=== PATIENT | male | born 1955 | race Caucasian/White ===

== ENCOUNTER 2018-02-19 16:41 | Outpatient (CLI) | payer BC ==
[2018-02-19 17:36] LABS: #Basophils 0.1 thou/uL (0.0-0.2); #Eosinphils 0.2 thou/uL (0.0-0.7); #Lymphocytes 1.3 thou/uL (1.20-3.40); #Monocytes 0.7 thou/uL (0.11-0.59); #Neutrophils 5.5 thou/uL (1.40-6.50); %Basophils 0.7 % (0.0-1.0); %Eosinophils 2.2 % (0.0-10.0); %Lymphocytes 17.3 % (21.0-51.0); %Neutrophils 70.8 % (42.0-75.0); Hemoglobin 14.9 g/dL (14.0-18.0); Mean Corpuscular HGB CONC 33.9 g/dL (32.0-36.0); Mean Corpuscular Hemoglobin 30.9 pg (27.0-31.0); Mean Corpuscular Volume 91.1 fL (78.0-98.0); Mean Platelet Volume 7.5 fL (7.4-10.4); Platelet Count 203 thou/uL (130-400); RBC Distribution Width 12.3 % (11.5-14.5); Red Blood Cell (RBC) Count 4.81 mill/uL (4.70-6.10); White Blood Cell (WBC) Count 7.7 thou/uL (4.8-10.8)
[2018-02-19 18:01] LABS: ALT (SGPT) 13 U/L (8-55); AST (SGOT) 19 U/L (5-34); Albumin 4.7 g/dL (3.5-5.0); Alkaline Phosphatase 62 U/L (40-150); Anion Gap 14 mmol/L (10-20); BUN (Urea Nitrogen) 19 mg/dL (8.4-25.7); Bilirubin, Total 0.9 mg/dL (0.2-1.2); Calc. Creatinine Clearance 0 mL/min (70-130); Calcium 9.3 mg/dL (7.8-10.44); Carbon Dioxide 25 mmol/L (22-29); Chloride 106 mmol/L (98-107); Estimated GFR-MDRD 70; Glucose 84 mg/dL (70-105); Potassium 3.9 mmol/L (3.5-5.1); Protein, Total 7.7 g/dL (6.0-8.3); Sodium 141 mmol/L (136-145)
--- NOTE | 2018-02-21 08:38 | EKG ---
Test Reason : Blood Pressure : / mmHG Vent. Rate : 063 BPM Atrial Rate : 063 BPM P-R Int : 150 ms QRS Dur : 090 ms QT Int : 398 ms P-R-T Axes : 046 041 034 degrees QTc Int : 407 ms Normal sinus rhythm Normal ECG When compared with ECG of 18-JAN-2014 14:01, Sinus rhythm has replaced Atrial fibrillation Vent. rate has decreased BY 75 BPM T wave amplitude has increased in Lateral leads Confirmed by BEAR ROMAN ([id number]) on 02/21/2018 8:38:35 AM Referred By: RAVEN Confirmed By:BEAR ROMAN
== END 2018-02-19 16:42 | disposition home or self-care (01) ==
LOC: LABBT 16:41
PROVIDERS: ATTEND Surgery
DX: Z01.818 Encounter for other preprocedural examination (principal); K40.90 Unilateral inguinal hernia, without obstruction or gangrene, not specified as recurrent
CPT/HCPCS: 80053; 85025; 93005; 93010

== ENCOUNTER 2018-03-05 06:22 | Day surgery (SDC) | payer BC ==
[2018-02-19 17:15] VITALS: BMI 27.8
[2018-03-05] MEDS ORDERED: CEFAZOLIN 2 GM/50 ML BAG ONE (06:57)
[2018-03-05] MEDS ORDERED: Bupivacaine/Epinephrine 0.25% 30 ML VIAL ONE (07:14)
[2018-03-05] MEDS ORDERED: Midazolam HCl 2 mg/2 ml Vial ONE (07:21)
[2018-03-05] MEDS ORDERED: Fentanyl 100 MCG/2 ML VIAL ONE (07:21)
[2018-03-05] MEDS ORDERED: HYDROmorphone 2 MG/ML VIAL ONE (07:22)
--- NOTE | 2018-03-05 08:47 | OP ---
PREOPERATIVE DIAGNOSIS: Right inguinal hernia. SURGEON: Emre Lang M.D. PROCEDURE PERFORMED: Right inguinal hernia repair with mesh. INDICATIONS: A 62-year-old male with a painful groin bulge on the right side, found to have a hernia . FINDINGS: A direct right inguinal hernia. DESCRIPTION OF PROCEDURE: After informed consent was obtained, the patient was taken to the operatin g room and given general mask anesthesia, placed in the supine position. His groin area was prepped and draped in the usual fashion. Local anesthesia infiltrated subcutaneously and deep. A transverse right inguinal incision was performed. The subcu divided sharply. The fascia of the external obliq ue was incised in direction of its fibers through the external ring. Spermatic cord isolated with a Yesica drain. He had a large direct inguinal hernia circumscribed and reduced. Reduction maintaine d with a PHS hernia system. Posterior layer placed in the preperitoneal space. Anterior was laid ou t, sutured to the pubic tubercle with a 2-0 Prolene suture, tucked under the external oblique fascia laterally. A notch was cut out for the spermatic cord. The cord placed anatomic. The fascia closed with a running 3-0 Vicryl. Carmelo's closed with interrupted 3-0 Vicryl and the skin closed with a r unning subcuticular 4-0 Rapide. Steri-Strips applied. Sterile bandage applied. The patient tolerat ed the procedure well and was transferred to recovery in good condition. Sponge and needle count abel ified correct x2.
[2018-03-05] MEDS ORDERED: Morphine 2 MG/ML SYRINGE ONE ×2 (09:01→09:15)
[2018-03-05] MEDS ORDERED: Ondansetron PF 4 MG/2 ML Vial ONE (12:42)
[2018-03-05] MEDS ORDERED: Dexamethasone 20 MG/5 ML VIAL ONE (12:42)
[2018-03-05] MEDS ORDERED: Ketorolac Tromethamine 30 MG/ML VIAL ONE (12:42)
[2018-03-05] MEDS ORDERED: Lidocaine 1% PF 5 ML VIAL ONE (12:42)
[2018-03-05] MEDS ORDERED: PROPOFOL 200 MG/20 ML VIAL ONE (12:42)
[2018-03-05] MEDS ORDERED: Glycopyrrolate 0.2 MG/ML 5 ML SYRINGE ONE (12:42)
== END 2018-03-05 10:19 | disposition home or self-care (01) ==
LOC: SDC 06:22
PROVIDERS: ATTEND Surgery
PROC: 0YU50JZ Supplement Right Inguinal Region with Synthetic Substitute, Open Approach (ICD-10-PCS; principal; 2018-03-05)
DX: K40.90 Unilateral inguinal hernia, without obstruction or gangrene, not specified as recurrent (principal); Z79.82 Long term (current) use of aspirin; Z79.899 Other long term (current) drug therapy; Z98.890 Other specified postprocedural states
CPT/HCPCS: 96374; C1781; J0131; J1100; J1170; J1885; J2001; J2250; J2270; J2405; J2704; J3010

== ENCOUNTER 2021-04-24 11:02 | Inpatient (IN) | payer BC ==
[2021-04-24] MEDS ORDERED: Magnesium 2 GM/50 ML BAG (IN WATER) ONE (11:24)
[2021-04-24] MEDS ORDERED: Diltiazem 125 MG/25 ML ONE (11:36)
[2021-04-24 12:08] LABS: #Eosinphils 0.1 thou/uL (0.0-0.7); #Lymphocytes 1.3 thou/uL (1.20-3.40); #Monocytes 0.6 thou/uL (0.11-0.59); #Neutrophils 6.1 thou/uL (1.40-6.50); %Basophils 0.6 % (0.0-1.0); %Eosinophils 1.2 % (0.0-10.0); %Lymphocytes 15.7 % (21.0-51.0); %Neutrophils 75.7 % (42.0-75.0); Hemoglobin 15.5 g/dL (14.0-18.0); Mean Corpuscular HGB CONC 33.6 g/dL (32.0-36.0); Mean Corpuscular Hemoglobin 31.1 pg (27.0-31.0); Mean Corpuscular Volume 92.5 fL (78.0-98.0); Platelet Count 203 thou/uL (130-400); RBC Distribution Width 11.9 % (11.5-14.5); Red Blood Cell (RBC) Count 4.98 mill/uL (4.70-6.10); White Blood Cell (WBC) Count 8.1 thou/uL (4.8-10.8)
[2021-04-24 12:26] LABS: ALT (SGPT) 17 U/L (8-55); AST (SGOT) 19 U/L (5-34); Albumin 3.8 g/dL (3.4-4.8); Alkaline Phosphatase 62 U/L (40-110); Anion Gap 12 mmol/L (10-20); BUN (Urea Nitrogen) 16 mg/dL (8.4-25.7); Bilirubin, Total 0.6 mg/dL (0.2-1.2); Calc. Creatinine Clearance 0 mL/min (70-130); Calcium 8.5 mg/dL (7.8-10.44); Carbon Dioxide 24 mmol/L (23-31); Chloride 106 mmol/L (98-107); Globulin 3.1 g/dL (2.4-3.5); Glucose 108 mg/dL (80-115); Lipase 36 U/L (8-78); Magnesium 2.7 mg/dL (1.6-2.6); Potassium 3.8 mmol/L (3.5-5.1); Protein, Total 6.9 g/dL (5.8-8.1); Sodium 138 mmol/L (136-145)
[2021-04-24 12:30] LABS: Bacteria/HPF None Seen HPF (None Seen); Bilirubin Negative (Negative); Blood, Urine 2+ (Negative); Clarity Clear (Clear); Glucose, Urine (Dipstick) Normal (Negative); Ketone, Urine Negative (Negative); Leukocyte Negative Leu/uL (Negative); Nitrite Negative (Negative); Protein, Urine (Dipstick) 10 mg/dL (Neg-Trace); Specific Gravity, Urine 1.016 (1.002-1.036); Squamous Epithelial None Seen HPF (0-3); Urobilinogen Normal mg/dL (Less than 2); WBC/HPF 0-3 HPF (0-3); pH, Urine 5.5 (5.0-9.0)
[2021-04-24 12:36] LABS: Prothrombin Time 13.4 sec (12.0-14.7)
[2021-04-24 12:37] LABS: PTT 29.2 sec (22.9-36.1)
[2021-04-24] MEDS ORDERED: Digoxin 0.5 MG/2 ML AMP ONE (13:02)
[2021-04-24] MEDS ORDERED: Acetaminophen 325 MG TAB PO PRN (13:45)
[2021-04-24] MEDS ORDERED: Communication Order-Pharmacy FS ONE (13:56)
[2021-04-24] MEDS ORDERED: Diltiazem 125 MG in Sodium Chloride 0.9% 100 ML IVPB SCH (14:00)
[2021-04-24] MEDS ORDERED: Enoxaparin Sodium 100 MG/ML SYRINGE ONE (14:02)
[2021-04-24] MEDS ORDERED: Diltiazem HCl SR 90 mg Capsule PO SCH (14:30)
[2021-04-24] MEDS ORDERED: Electrolyte Replacement Protocol 1 EACH FS SCH (14:45)
[2021-04-24] MEDS ORDERED: Magnesium 2 GM/50 ML 2 GM in Premix Bag 1 BAG IVPB SCH (15:00)
[2021-04-24] MEDS ORDERED: Enoxaparin Sodium 100 MG/ML SYRINGE SC SCH (15:00)
[2021-04-24] MEDS ORDERED: Electrolyte Replacement Protocol FS PRN (15:15)
[2021-04-24 16:06] LABS: SARS-CoV-2 NAA Rapid Test Not Detected (NotDetected)
[2021-04-24] MEDS ORDERED: Potassium Chloride 20 MEQ TAB PO SCH ×2 (16:15→17:00)
[2021-04-24] MEDS ORDERED: Digoxin 0.5 MG/2 ML AMP SLOW IVP SCH ×2 (17:00)
[2021-04-24] MEDS ORDERED: Metoprolol Tartrate 5 MG/5 ML VIAL IVP PRN (17:08)
[2021-04-24] MEDS ORDERED: Amiodarone 450 MG in Dextrose 5% in Water 250 ML IVPB SCH (17:30)
[2021-04-24] MEDS ORDERED: Amiodarone 150 MG, Admixture Fee 1 EACH in Dextrose 5% in Water 100 ML IVPB SCH (17:30)
[2021-04-24 17:33] VITALS: BMI 29.2
[2021-04-24 18:26] LABS: Troponin I Less than 0.010 ng/mL (< 0.028)
[2021-04-24] MEDS: Senokot S 8.6-50 MG TAB PO SCH (19:55)
[2021-04-24] MEDS: Diltiazem 125 MG in Sodium Chloride 0.9% 100 ML IVPB SCH (20:04)
[2021-04-24] MEDS: Folic Acid 1 MG TAB PO SCH (21:25)
[2021-04-24] MEDS: Multivit, Therapeutic 1 TAB PO SCH (21:25)
[2021-04-24] MEDS: Thiamine 100 MG TAB PO SCH (21:25)
[2021-04-24] MEDS: Calcium Carbonate 500 MG ChewTAB PO PRN (22:56)
[2021-04-24] MEDS ORDERED: Sodium Chloride 0.9% 1,000 ML IV SCH (23:00)
[2021-04-24] MEDS ORDERED: Calcium Carbonate 500 MG ChewTAB PO PRN (23:08)
[2021-04-25] MEDS ORDERED: Enoxaparin Sodium 100 MG/ML SYRINGE SC SCH ×3 (03:00→21:00)
[2021-04-25 04:24] LABS: #Eosinphils 0.1 thou/uL (0.0-0.7); #Lymphocytes 1.4 thou/uL (1.20-3.40); #Monocytes 0.5 thou/uL (0.11-0.59); %Basophils 0.5 % (0.0-1.0); %Eosinophils 1.3 % (0.0-10.0); %Lymphocytes 15.3 % (21.0-51.0); %Monocytes 5.6 % (0.0-10.0); %Neutrophils 77.3 % (42.0-75.0); Hemoglobin 14.7 g/dL (14.0-18.0); Mean Corpuscular HGB CONC 34.7 g/dL (32.0-36.0); Mean Corpuscular Hemoglobin 32.1 pg (27.0-31.0); Mean Corpuscular Volume 92.5 fL (78.0-98.0); Mean Platelet Volume 7.2 fL (7.4-10.4); Platelet Count 206 thou/uL (130-400); RBC Distribution Width 11.9 % (11.5-14.5); Red Blood Cell (RBC) Count 4.59 mill/uL (4.70-6.10); White Blood Cell (WBC) Count 9.1 thou/uL (4.8-10.8)
[2021-04-25 04:45] LABS: Anion Gap 11 mmol/L (10-20); BUN (Urea Nitrogen) 14 mg/dL (8.4-25.7); Calc. Creatinine Clearance 97 mL/min (70-130); Calcium 8.4 mg/dL (7.8-10.44); Carbon Dioxide 25 mmol/L (23-31); Chloride 107 mmol/L (98-107); Glucose 104 mg/dL (80-115); Magnesium 2.1 mg/dL (1.6-2.6); Potassium 4.1 mmol/L (3.5-5.1); Sodium 139 mmol/L (136-145)
[2021-04-25] MEDS: Senokot S 8.6-50 MG TAB PO SCH ×2 (08:37→20:27)
[2021-04-25] MEDS: Diltiazem 125 MG in Sodium Chloride 0.9% 100 ML IVPB SCH (08:58)
[2021-04-25] MEDS ORDERED: Ketamine 50 MG/ML (10ML VIAL) ONE (11:43)
[2021-04-25] MEDS: Multivit, Therapeutic 1 TAB PO SCH (20:27)
[2021-04-25] MEDS: Apixaban 5 MG TAB PO SCH (20:27)
[2021-04-25] MEDS: Folic Acid 1 MG TAB PO SCH (20:27)
[2021-04-25] MEDS: Flecainide 50 MG TAB PO SCH (20:27)
[2021-04-25] MEDS: Thiamine 100 MG TAB PO SCH (20:27)
[2021-04-25] MEDS: Calcium Carbonate 500 MG ChewTAB PO PRN (20:27)
[2021-04-26 08:52] VITALS: TEMP 97.8
[2021-04-26] MEDS: Apixaban 5 MG TAB PO SCH (09:34)
[2021-04-26] MEDS: Flecainide 50 MG TAB PO SCH (09:34)
[2021-04-26] MEDS: Senokot S 8.6-50 MG TAB PO SCH (09:34)
[2021-04-26 11:58] VITALS: BP 120/82
== END 2021-04-26 12:07 | disposition home or self-care (01) | DRG 310 ==
LOC: ERS 11:02 → CCU 13:52 → 2NO 04-25 14:50
PROVIDERS: ADMIT Internal Medicine; ATTEND Internal Medicine
PROC: 5A2204Z Restoration of Cardiac Rhythm, Single (ICD-10-PCS; principal; 2021-04-25)
PROC: B24BZZ4 Ultrasonography of Heart with Aorta, Transesophageal (ICD-10-PCS; 2021-04-25)
DX: I48.0 Paroxysmal atrial fibrillation (principal); Z20.822 Contact with and (suspected) exposure to COVID-19; K21.9 Gastro-esophageal reflux disease without esophagitis; I10 Essential (primary) hypertension; I48.4 Atypical atrial flutter; I08.1 Rheumatic disorders of both mitral and tricuspid valves; I42.9 Cardiomyopathy, unspecified; Z95.5 Presence of coronary angioplasty implant and graft; Z88.5 Allergy status to narcotic agent; Z79.82 Long term (current) use of aspirin; Z79.899 Other long term (current) drug therapy
CPT/HCPCS: 36415; 71045; 80048; 80053; 81003; 81015; 83690; 83735; 83880; 84443; 84484; 85025; 85610; 85730; 93005; 93010; 93312; 96365; 96366; 96375; 96376; J1160; J1650; J3475; J3490; J7050; U0002

== ENCOUNTER 2021-06-15 10:21 | Outpatient (CLI) | payer BC ==
[2021-06-15 11:12] LABS: Hemoglobin 13.9 g/dL (13.5-17.5); Mean Corpuscular HGB CONC 33.9 g/dL (32.0-36.0); Mean Corpuscular Hemoglobin 30.7 pg (27.0-33.0); Mean Corpuscular Volume 90.5 fl (81.2-95.1); Mean Platelet Volume 9.4 fl (7.4-10.4); Platelet Count 177 10x3/uL (150-450); RBC Distribution Width 12.8 % (11.5-14.5); Red Blood Cell (RBC) Count 4.53 10x6/uL (4.32-5.72); White Blood Cell (WBC) Count 6.3 10x3/uL (3.5-10.5)
[2021-06-15 11:30] LABS: PTT 27.8 sec (22.0-33.0); Prothrombin Time 11.3 sec (9.5-12.1)
[2021-06-15 11:33] LABS: Anion Gap 13 mmol/L (10-20); BUN (Urea Nitrogen) 16 mg/dL (8.4-25.7); Calc. Creatinine Clearance 0 mL/min (70-130); Calcium 8.7 mg/dL (7.8-10.44); Carbon Dioxide 24 mmol/L (23-31); Chloride 107 mmol/L (98-107); Glucose 91 mg/dL (80-115); Potassium 4.2 mmol/L (3.5-5.1); Sodium 140 mmol/L (136-145)
[2021-06-15 18:46] LABS: SARS-CoV-2 PCR by NAA Not Detected (NotDetected)
== END 2021-06-15 10:22 | disposition home or self-care (01) ==
LOC: LABBT 10:21
PROVIDERS: ATTEND Internal Medicine Cardiovascular Disease
DX: Z01.818 Encounter for other preprocedural examination (principal); I48.92 Unspecified atrial flutter; Z20.822 Contact with and (suspected) exposure to COVID-19
CPT/HCPCS: 80048; 85027; 85610; 85730; 93005; 93010; U0003; U0005

== ENCOUNTER 2021-06-20 05:39 | Day surgery (SDC) | payer BC ==
[2021-06-14 14:03] VITALS: BMI 29.4
[2021-06-20] MEDS ORDERED: Fentanyl 250 MCG/5 ML VIAL ONE (06:30)
[2021-06-20] MEDS ORDERED: Heparin 10,000 UNITS/ 10 ML VIAL ONE (06:49)
[2021-06-20] MEDS ORDERED: Isoproterenol 0.2 MG/1 ML AMP ONE ×2 (06:49→07:38)
[2021-06-20] MEDS ORDERED: Heparin 25,000 units/D5W 500 ML ONE (06:49)
[2021-06-20] MEDS ORDERED: Phenylephrine 10 MG/ML VIAL ONE (07:12)
[2021-06-20] MEDS ORDERED: SUGAMMADEX SODIUM 200 MG/2 ML VIAL ONE (07:13)
[2021-06-20] MEDS ORDERED: Dexamethasone 20 MG/5 ML VIAL ONE (08:22)
[2021-06-20] MEDS ORDERED: Glycopyrrolate 0.2 MG/ML 5 ML SYRINGE ONE (08:22)
[2021-06-20] MEDS ORDERED: PROPOFOL 200 MG/20 ML VIAL ONE (08:22)
[2021-06-20] MEDS ORDERED: Rocuronium Bromide 10 MG/ML (10ML VIAL) ONE (08:22)
[2021-06-20] MEDS ORDERED: Ondansetron PF 4 MG/2 ML Vial ONE (08:22)
[2021-06-20] MEDS ORDERED: Lidocaine 1% PF 5 ML VIAL ONE (08:22)
[2021-06-20] MEDS ORDERED: Protamine Sulfate 50 MG/5 ML VIAL ONE (09:54)
== END 2021-06-20 13:53 | disposition home or self-care (01) ==
LOC: SDC 05:39
PROVIDERS: ATTEND Internal Medicine Cardiovascular Disease
PROC: 02583ZZ Destruction of Conduction Mechanism, Percutaneous Approach (ICD-10-PCS; principal; 2021-06-20)
PROC: 02K83ZZ Map Conduction Mechanism, Percutaneous Approach (ICD-10-PCS; principal; 2021-06-20)
PROC: B244ZZZ Ultrasonography of Right Heart (ICD-10-PCS; principal; 2021-06-20)
DX: I48.4 Atypical atrial flutter (principal); I48.19 Other persistent atrial fibrillation; I08.1 Rheumatic disorders of both mitral and tricuspid valves; I42.9 Cardiomyopathy, unspecified; I13.10 Hypertensive heart and chronic kidney disease without heart failure, with stage 1 through stage 4 chronic kidney disease, or unspecified chronic kidney disease; N18.9 Chronic kidney disease, unspecified; K21.9 Gastro-esophageal reflux disease without esophagitis; Z79.01 Long term (current) use of anticoagulants; Z79.899 Other long term (current) drug therapy; Z88.5 Allergy status to narcotic agent; Z88.6 Allergy status to analgesic agent; Z98.890 Other specified postprocedural states
CPT/HCPCS: 85347; 93005; 93613; 93623; 93656; 93662; C1732; C1759; C1884; J1100; J1644; J2370; J2405; J2704; J2720; J3010

== ENCOUNTER 2021-08-29 13:16 | Outpatient (CLI) | payer BC | END 2021-08-29 13:17 | disposition home or self-care (01) | LOC: TBSIIMAG 13:16 | PROVIDERS: ATTEND Specialist | DX: M51.16 Intervertebral disc disorders with radiculopathy, lumbar region (principal); M50.10 Cervical disc disorder with radiculopathy, unspecified cervical region; M47.26 Other spondylosis with radiculopathy, lumbar region; M48.062 Spinal stenosis, lumbar region with neurogenic claudication; M48.07 Spinal stenosis, lumbosacral region; M48.02 Spinal stenosis, cervical region; G95.20 Unspecified cord compression | CPT/HCPCS: 72141; 72148 ==

== ENCOUNTER 2022-03-13 19:30 | Outpatient (CLI) | payer BC | END 2022-03-13 19:31 | disposition home or self-care (01) | LOC: SLEEPLAB 19:30 | PROVIDERS: ATTEND Specialist | DX: G47.9 Sleep disorder, unspecified (principal); R06.83 Snoring; G47.10 Hypersomnia, unspecified; I10 Essential (primary) hypertension; I48.91 Unspecified atrial fibrillation; G47.00 Insomnia, unspecified | CPT/HCPCS: 95811 ==

== ENCOUNTER 2022-07-09 15:00 | Outpatient (CLI) | payer MEDICARE, BC | END 2022-07-09 15:01 | disposition home or self-care (01) | LOC: TBSIIMAG 15:00 | PROVIDERS: ATTEND Surgery | DX: M47.26 Other spondylosis with radiculopathy, lumbar region (principal); R29.890 Loss of height; M46.06 Spinal enthesopathy, lumbar region; M41.86 Other forms of scoliosis, lumbar region; M41.87 Other forms of scoliosis, lumbosacral region; M51.34 Other intervertebral disc degeneration, thoracic region; M48.04 Spinal stenosis, thoracic region; M51.36 Other intervertebral disc degeneration, lumbar region; M48.061 Spinal stenosis, lumbar region without neurogenic claudication; M47.817 Spondylosis without myelopathy or radiculopathy, lumbosacral region; M25.78 Osteophyte, vertebrae | CPT/HCPCS: 72110; 72148 ==

== ENCOUNTER 2022-08-19 16:01 | Outpatient (CLI) | payer MEDICARE, BC ==
[2022-08-19 17:23] LABS: Hemoglobin 13.5 g/dL (13.5-17.5); Mean Corpuscular HGB CONC 33.2 g/dL (32.0-36.0); Mean Corpuscular Hemoglobin 30.6 pg (27.0-33.0); Mean Corpuscular Volume 92.3 fl (81.2-95.1); Mean Platelet Volume 9.9 fl (7.4-10.4); Platelet Count 188 10x3/uL (150-450); RBC Distribution Width 12.3 % (11.5-14.5); Red Blood Cell (RBC) Count 4.41 10x6/uL (4.32-5.72); White Blood Cell (WBC) Count 6.3 10x3/uL (3.5-10.5)
[2022-08-19 17:34] LABS: INR-International Normal Ratio 0.9; PTT 26.6 sec (22.0-33.0); Prothrombin Time 10.2 sec (9.5-12.1)
[2022-08-19 17:40] LABS: Anion Gap 14 mmol/L (10-20); BUN (Urea Nitrogen) 23 mg/dL (8.4-25.7); Calc. Creatinine Clearance 0 mL/min (70-130); Calcium 8.6 mg/dL (7.8-10.44); Carbon Dioxide 26 mmol/L (23-31); Chloride 105 mmol/L (98-107); Estimated GFR 52; Glucose 89 mg/dL (80-115); Potassium 4.5 mmol/L (3.5-5.1); Sodium 140 mmol/L (136-145)
== END 2022-08-19 16:02 | disposition home or self-care (01) ==
LOC: LABBT 16:01
PROVIDERS: ATTEND Surgery
DX: Z01.812 Encounter for preprocedural laboratory examination (principal); M54.16 Radiculopathy, lumbar region; M48.062 Spinal stenosis, lumbar region with neurogenic claudication
CPT/HCPCS: 80048; 85027; 85610; 85730

== ENCOUNTER 2022-08-22 08:47 | Observation (INO) | payer MEDICARE, BC ==
[2022-08-21 11:25] VITALS: BMI 30.1
[2022-08-22] MEDS ORDERED: Sodium Chloride 0.9% 100 ML ONE (09:53)
[2022-08-22] MEDS ORDERED: CEFAZOLIN 2 GM VIAL ONE (09:53)
[2022-08-22] MEDS ORDERED: Vancomycin 1 GM VIAL ONE (10:07)
[2022-08-22] MEDS ORDERED: Thrombin 5000 UNITS/5 ML VIAL ONE (10:07)
[2022-08-22] MEDS ORDERED: Fentanyl 250 MCG/5 ML VIAL ONE (10:27)
[2022-08-22] MEDS ORDERED: Magnesium 5 GM/10 ML VIAL ONE (12:30)
[2022-08-22] MEDS ORDERED: Dexmedetomidine 200 MCG/2 ML VIAL ONE (12:30)
[2022-08-22] MEDS ORDERED: KETAMINE 100 MG/ML (5ML VIAL) ONE (12:30)
[2022-08-22] MEDS ORDERED: Dexamethasone 20 MG/5 ML VIAL ONE (13:00)
[2022-08-22] MEDS ORDERED: PROPOFOL 200 MG/20 ML VIAL ONE (13:00)
[2022-08-22] MEDS ORDERED: Lidocaine 1% PF 5 ML VIAL ONE (13:00)
[2022-08-22] MEDS ORDERED: Rocuronium Bromide 10 MG/ML (10ML VIAL) ONE (13:00)
[2022-08-22] MEDS ORDERED: NEOSTIGMINE 3 MG/3 ML SYR 3 MG/3 ML SYRINGE ONE (13:00)
[2022-08-22] MEDS ORDERED: ePHEDrine Sulfate 50 MG/10 ML VIAL ONE (13:00)
[2022-08-22] MEDS ORDERED: GLYCOPYRROLATE/PF 0.2 MG/ML VIAL ONE (13:00)
[2022-08-22] MEDS ORDERED: Ondansetron PF 4 MG/2 ML Vial ONE (13:00)
[2022-08-22] MEDS ORDERED: Phenylephrine 10 MG/ML VIAL ONE (13:00)
[2022-08-22] MEDS ORDERED: diphenhydrAMINE 25 MG CAP PO PRN (14:04)
[2022-08-22] MEDS ORDERED: Morphine 2 MG/ML VIAL SLOW IVP PRN (14:04)
[2022-08-22] MEDS ORDERED: traMADol HCl 50 MG TAB PO PRN ×2 (14:04)
[2022-08-22] MEDS ORDERED: oxyCODONE 5 MG TAB PO PRN (14:06)
[2022-08-22] MEDS ORDERED: Promethazine HCl 12.5 MG in Sodium Chloride 0.9% 50 ML IVPB PRN (14:06)
[2022-08-22] MEDS ORDERED: Albumin 5% 250 ML ONE (14:52)
[2022-08-22] MEDS ORDERED: PHENYLEPHRINE-NS 100 MCG/ML 10 ML SYRINGE ONE (14:56)
[2022-08-22] MEDS ORDERED: Flecainide 50 MG TAB PO PRN ×2 (15:33→16:40)
[2022-08-22] MEDS ORDERED: hydrALAZINE 20 MG/ML VIAL SLOW IVP PRN (15:34)
[2022-08-22] MEDS ORDERED: Promethazine HCl 25 MG/ML VIAL IM PRN (15:57)
[2022-08-22] MEDS ORDERED: Ondansetron HCl/PF 4 MG/2 ML Vial IVP PRN (15:57)
[2022-08-22] MEDS ORDERED: fentaNYL 50 mcg/mL 1 mL Vial ONE (16:34)
[2022-08-22] MEDS ORDERED: HYDROmorphone 0.5 MG/0.5 ML SYRINGE ONE (17:12)
[2022-08-22] MEDS: CEFAZOLIN 2 GM in Sodium Chloride 0.9% 100 ML IVPB SCH (20:00)
[2022-08-22] MEDS: Ketorolac Tromethamine 30 MG/ML VIAL IVP PRN (20:01)
[2022-08-22] MEDS: tiZANidine HCl 4 MG TAB PO PRN (20:01)
[2022-08-22] MEDS: Tamsulosin HCl 0.4 MG CAP PO SCH (20:01)
[2022-08-22] MEDS: Sodium Chloride 0.9% 1,000 ML IV SCH (20:02)
[2022-08-23] MEDS: CEFAZOLIN 2 GM in Sodium Chloride 0.9% 100 ML IVPB SCH (02:14)
[2022-08-23] MEDS: Ketorolac Tromethamine 30 MG/ML VIAL IVP PRN ×2 (03:39→21:03)
[2022-08-23] MEDS ORDERED: CEFAZOLIN 2 GM in Sodium Chloride 0.9% 100 ML IVPB SCH (04:00)
[2022-08-23] MEDS: Sodium Chloride 0.9% 1,000 ML IV SCH ×2 (04:43→18:06)
[2022-08-23 07:25] LABS: #Lymphocytes 0.5 thou/uL (1.20-3.40); #Monocytes 0.7 thou/uL (0.11-0.59); #Neutrophils 12.5 thou/uL (1.40-6.50); %Basophils 0.1 % (0.0-1.0); %Eosinophils 0.1 % (0.0-10.0); %Lymphocytes 3.5 % (21.0-51.0); %Monocytes 5.1 % (0.0-10.0); %Neutrophils 91.2 % (42.0-75.0); Hemoglobin 12.5 g/dL (14.0-18.0); Mean Corpuscular HGB CONC 34.4 g/dL (32.0-36.0); Mean Corpuscular Hemoglobin 32.3 pg (27.0-31.0); Mean Platelet Volume 7.9 fL (7.4-10.4); Platelet Count 160 10x3/uL (130-400); RBC Distribution Width 11.7 % (11.5-14.5); Red Blood Cell (RBC) Count 3.87 mill/uL (4.70-6.10); White Blood Cell (WBC) Count 13.7 10x3/uL (4.8-10.8)
[2022-08-23 07:55] LABS: Anion Gap 13 mmol/L (10-20); BUN (Urea Nitrogen) 21 mg/dL (8.4-25.7); Calc. Creatinine Clearance 88 mL/min (70-130); Calcium 7.9 mg/dL (7.8-10.44); Carbon Dioxide 21 mmol/L (23-31); Chloride 108 mmol/L (98-107); Estimated GFR 72; Glucose 110 mg/dL (80-115); Potassium 4.2 mmol/L (3.5-5.1); Sodium 138 mmol/L (136-145)
[2022-08-23] MEDS: tiZANidine HCl 4 MG TAB PO PRN (12:19)
[2022-08-23] MEDS: oxyCODONE 5 MG TAB PO PRN (18:18)
[2022-08-23] MEDS: Tamsulosin HCl 0.4 MG CAP PO SCH (21:04)
[2022-08-24] MEDS: oxyCODONE 5 MG TAB PO PRN ×2 (05:59→12:57)
[2022-08-24] MEDS: Sodium Chloride 0.9% 1,000 ML IV SCH ×2 (07:39→10:09)
[2022-08-24 12:17] VITALS: BP 117/66; TEMP 98.5
== END 2022-08-24 17:00 | disposition home or self-care (01) ==
LOC: SDC 08:47 → SURG B 18:05
PROVIDERS: ADMIT Surgery; ATTEND Surgery
PROC: 01NB0ZZ Release Lumbar Nerve, Open Approach (ICD-10-PCS; principal; 2022-08-22)
DX: M48.062 Spinal stenosis, lumbar region with neurogenic claudication (principal); M54.16 Radiculopathy, lumbar region; Z79.899 Other long term (current) drug therapy; Z88.5 Allergy status to narcotic agent
CPT/HCPCS: 63030; 63047; 63048 ×2; 80048; 85025; 97116; C1713; J3010; J3490; P9045; 36415; J1100; J1170; J1885; J2370; J2405; J2704; J3370; J3475; J7050